=== PATIENT | female | born 1965 | race Caucasian/White ===

== ENCOUNTER 2023-02-19 11:47 | Emergency (ER) | payer OTHER ==
[~2023-02-19] VITALS: Ht 167.6 cm; Wt 74.8 kg
[2023-02-19] MEDS ORDERED: LORAZEPAM 1 MG TABLET ONE (12:23)
[2023-02-19] MEDS: LORAZEPAM 1 MG TABLET PO ONE (12:35)
[2023-02-19 12:56] VITALS: BP 119/75; TEMP 98.1; O2SAT 98
== END 2023-02-19 12:57 | disposition home or self-care (01) ==
LOC: ER 12:50
DX: F41.9 Anxiety disorder, unspecified (principal)